=== PATIENT | male | born 1955 | race African-American/Black ===

== ENCOUNTER 2019-01-23 16:40 | Inpatient (IN) | payer OTHER, MEDICAID ==
[~2019-01-23] VITALS: Ht 195.6 cm; Wt 120.2 kg
[~2019-01-23 16:40] MED LIST: ASPIR 8181 MG PO; CARISOPRODOL350 MG PO; COZAAR50 MG PO; DILAUDID4 MG PO; HYDROCHLOROTHIA25 MG PO; LANTUS SOLOS100 U/M1 INJ; LYRICA150 M1 PO; METFORMIN HCL1000 MG PO; METHIMAZOLE10 MG PO; METOPROLOL SUC100 M2 PO; NAPROSYN500 MG PO; NOVI INJ; OXYCONTIN80 MG PO; SIMVASTATIN40 M1 PO; TRAMADOL HCL50 MG PO
[2019-01-23 16:43] VITALS: Ht 195.6 cm; Wt 120.2 kg
--- NOTE | 2019-01-23 16:59 | NUR ---
PATIENT PRESENTS TO ED WITH C/O SHARP CHEST PAIN THAT STARTED 45 MIN CREW PERSON. STS THAT THE PAIN DOES NOT RADIATE ELSEWHERE. BREATHING E/U, BILATERAL CHEST RISE. DENIES PAIN ELSEWHERE. DR. BA AT BEDSIDE PERFORMED MSE
--- NOTE | 2019-01-23 17:00 | NUR ---
XRAY AT BEDSIDE
--- NOTE | 2019-01-23 17:12 | NUR ---
LAB AT BEDSIDE
[2019-01-23 17:34] LABS: BASOPHIL % 0.5 % (0-2); PLATELET COUNT 155 x10^3mcL (130-400)
[2019-01-23 17:37] LABS: CALCIUM 8.9 mg/dL (8.5-10.1); CARBON DIOXIDE 28.4 mmol/L (21-32); CHLORIDE SERUM 105 mmol/L (98-107); CREATININE SERUM 0.9 mg/dL (0.7-1.3); GFR1 > 60 mL/min; GLUCOSE SERUM 86 mg/dL (74-106); POTASSIUM SERUM 3.9 mmol/L (3.5-5.1); SODIUM SERUM 144 mmol/L (136-145)
[2019-01-23 17:42] LABS: RED CELL DISTRIBUTION WIDTH 15.3 % (11.5-14.5)
[2019-01-23 17:43] LABS: ALBUMIN 3.6 g/dL (3.4-5.0); ALKALINE PHOSPHATASE 83 U/L (46-116); ALT/SGPT 27 U/L (16-63); AST/SGOT 17 U/L (15-37); BILIRUBIN TOTAL 0.36 mg/dL (0.20-1.00); TOTAL PROTEIN, SERUM 7.3 g/dL (6.4-8.2)
--- NOTE | 2019-01-23 19:10 | NUR ---
PT RESTING AT BEDSIDE IN NAD
--- NOTE | 2019-01-23 19:17 | NUR ---
REPORT OFF TO ANGELES CONKLIN
--- NOTE | 2019-01-23 19:30 | NUR ---
RECEIVED PT VIA [employer] FROM E/D, ACCOMPANIED BY RN, TRANSPORTER, AND PT'S SISTER, BRUNO VILLAFANA. PT A/A/O X 4, CALM, COOPERATIVE; WEARS GLASSES (W/ PT) AND HEARING AIDS (@ HOME). BLE WEAKNESS, ABLE TO AMBULATE W/ SLOW, STEADY GAIT USING FWW, FALL RISK PROTOCOL IN PLACE. ON TELE # 10, NSR, HR 69, STATES CONSTANT SQUEEZING C/P / THAT IS MILDLY RELIEVED BY PAIN MEDICATION. JEFFREY RADIAL PULSES PRESENT, JEFFREY PEDAL PULSES WEAK, NO EDEMA, CAP REFILL < 3 SECS, C/O CONSTANT BLE NEUROPATHIC PAIN 03/31, SCD BY BEDSIDE. LUNGS CTAB, CHEST RISING EVENLY, R/A, 95%, NO ACUTE RESPIRATORY DISTRESS NOTED. ABD SOFT, ROUND, NON-TENDER, NORMOACTIVE BOWEL SOUNDS X 4 QUADS, LAST BM 01/22/19, HARD. IV SITE RAC 18G, CDI. ORIENTED PT AND SISTER TO ROOM, BED CONTROLS, CALL LIGHT SYSTEM. SIDE RAILS UP X 2, BED IN LOW POSITION. WILL ENDORSE TO ANGELES ELI.
[2019-01-23 19:35] LABS: MAGNESIUM 2.2 mg/dL (1.8-2.4); PHOSPHOROUS 3.6 mg/dL (2.5-4.9)
[2019-01-23 20:10] VITALS: BP 142/84
--- NOTE | 2019-01-23 23:18 | NUR ---
PT C/O CHEST PRESSURE 7/10. MEDICATED WITH MORPHINE. DR SNYDER AWARE AND TALKED TO THE PT.
--- NOTE | 2019-01-24 01:05 | NUR ---
PT WATCHING TV AT THIS TIME. NO S/S OF PAIN. NO DISTRESS NOTED. CALL LIGHT WITHIN REACH.
[2019-01-24 01:20] LABS: microscopic required? NO
[2019-01-24 01:25] LABS: UA SPECIFIC GRAVITY 1.025 (1.005-1.035); urine erythrocyte NEGATIVE (NEGATIVE)
[2019-01-24 01:43] LABS: AMPHETAMINE QUAL UR NONE DETECTED (See below)
[2019-01-24 05:17] VITALS: BP 119/64
--- NOTE | 2019-01-24 06:46 | NUR ---
PT RESTED AT INTERVALS. NO SOB ON ROOM AIR. NO C/O CHEST PAIN AT THIS TIME. SAFETY MEASURES MAINTAINED. ALL NEEDS ATTENDED TO. CALL LIGHT WITHIN REACH. WILL ENDORSE CONTINUITY OF CARE TO ONCOMING RN.
--- NOTE | 2019-01-24 07:11 | NUR ---
RECEIVED PATIENT RESTING IN BED C/O BILAT LEG PAIN AND THAT HE HAS NOT BEEN GIVEN ANY OF HIS HOME MEDS. IV TO RAC IS PATENT AND INFUSING NS @ 100 ML/HR. NO REDNESS OR PAIN. TELE # [address] NO CURRENT COMPLAINTS OF CHEST PAIN. PT ON ROOM AIR. NO C/O SOB AND NO DISTRESS NOTED. ALL QUESTIONS AND CONCERNS ADDRESSED. WILL FOLLOW UP WITH MEDICATIONS.
[2019-01-24 07:15] LABS: BASOPHIL % 0.5 % (0-2)
[2019-01-24 07:18] LABS: CALCIUM 8.7 mg/dL (8.5-10.1); CARBON DIOXIDE 28.4 mmol/L (21-32); CHLORIDE SERUM 106 mmol/L (98-107); CREATININE SERUM 0.7 mg/dL (0.7-1.3); GFR1 > 60 mL/min; GLUCOSE SERUM 150 mg/dL (74-106); MAGNESIUM 2.2 mg/dL (1.8-2.4); PHOSPHOROUS 3.6 mg/dL (2.5-4.9); POTASSIUM SERUM 3.7 mmol/L (3.5-5.1); SODIUM SERUM 142 mmol/L (136-145)
[2019-01-24 07:25] LABS: PLATELET COUNT 129 x10^3mcL (130-400); RED CELL DISTRIBUTION WIDTH 14.8 % (11.5-14.5)
[2019-01-24 08:09] VITALS: BP 136/71
--- NOTE | 2019-01-24 09:14 | NUR ---
ROUNDS. DR CHOWDHURY, RESIDENTS, PRIMARY RN, AND CHARGE RNAT BEDSIDE. DISCUSSED HISTORY OF PRESENT ILLNESS, PLAN OF CARE TO INCLUDE PAIN CONTROL AND CONTINUATION OF HOME MEDICATIONS. CARDIOLOGY CONSULT. PT OK WITH PLAN LONG HE DOESN'T HAVE TO STAY THE NIGHT. ALL QUESTIONS AND CONCERNS ADDRESSED.
--- NOTE | 2019-01-24 12:39 | NUR ---
SPOKE WITH PHARMACIST TO REQUEST ONE TIME DOSE OF SCHEDULED OXYCONTIN 0900 AND 2100 HE MISSED MORNING DOSE DUE TO ORDER PLACEMENT TIME.
[2019-01-24 12:40] VITALS: BP 137/79
--- NOTE | 2019-01-24 15:12 | NUR ---
IN TO SEE PATIENT AND ASSESS NEEDS. PT AND AT BEDSIDE ARE BOTH AGITATED AND STATING THAT A DOCTOR CAME IN AND TOLD THEM THAT THE [employer] MAY NOT COME TO SEE HIM UNTIL TOMORROW. PT STATED THAT THIS IS UNPROFESSIONAL AND IF SOMEONE DOES NOT COME SEE HIM BY 1700 HE IS GOING TO LEAVE. DR OMER NOTIFIED.
--- NOTE | 2019-01-24 15:52 | NUR ---
PT HAVING ECHO NOW.
[2019-01-24 16:16] VITALS: BP 149/92
--- NOTE | 2019-01-24 17:49 | NUR ---
PATIENT STATED THAT HE WILL BE LEAVING IF NOBODY HAS COME TO SEE HIM BY 1700. DR OMER PAGED. DR OMER IN TO SEE PATIENT TO DISCUSS RISKS OF LEAVING AMA. PT STILL INSISTS ON LEAVING.
--- NOTE | 2019-01-24 18:03 | NUR ---
IN TO SEE PATIENT TO SIGN AMA FORM AND DC IV. ID BANDS CUT. TELE # 10 REMOVED. MONITOR NOTIFIED. IV POLE CLEARED.
--- NOTE | 2019-01-24 18:26 | NUR ---
PATIENT AND HAVE LEFT THE FLOOR. DR OMER NOTIFIED. DOCTOR OF PODIATRIC MEDICINE NOTIFIED.
== END 2019-01-24 18:25 | disposition left against medical advice (07) | DRG 206 ==
LOC: ED 16:40 → DU 18:39
PROVIDERS: Emergency Medicine; ADMIT Internal Medicine
DX: M94.0 Chondrocostal junction syndrome [Tietze] (principal); M62.82 Rhabdomyolysis; I10 Essential (primary) hypertension; E11.9 Type 2 diabetes mellitus without complications; E21.3 Hyperparathyroidism, unspecified; M54.9 Dorsalgia, unspecified; G89.29 Other chronic pain; I25.2 Old myocardial infarction; Z68.31 Body mass index [BMI] 31.0-31.9, adult; Z79.4 Long term (current) use of insulin; Z79.84 Long term (current) use of oral hypoglycemic drugs; Z79.891 Long term (current) use of opiate analgesic
CPT/HCPCS: 82962; 83880; G0378; J2270; J7030; Q0092